=== PATIENT | male | born 1995 | race Caucasian/White ===

== ENCOUNTER 2016-11-21 06:44 | Inpatient (IN) | payer OTHER ==
[~2016-11-21] VITALS: Ht 182.9 cm; Wt 66.7 kg
[2016-11-21 06:57] VITALS: BP 129/80; PULSE 114; RESP 18; TEMP 98.7; O2SAT 100
[2016-11-21] MEDS ORDERED: NACL 0.9% 1,000 ML IV ONE ×2 (06:58→07:30)
[2016-11-21] MEDS ORDERED: PROMETHAZINE HCL 25 MG/ML AMP IVP ONE (07:00)
[2016-11-21] MEDS ORDERED: MORPHINE 4 MG/ML INJ. SYRINGE IVP ONE (07:00)
--- NOTE | 2016-11-21 07:07 | NUR ---
Placed in room 8. Placed on bus driver/monitor, blood pressure machine and pulse oximeter. To gown for exam. Side rails up. Report given to
[2016-11-21 07:10] LABS: BILIRUBIN,URINE 1+ (NEGATIVE); BLOOD, URINE 1+ (NEGATIVE); CLARITY/URINE HAZY (CLEAR); COLOR,URINE AMBER (YELLOW); GLUCOSE,URINE NEGATIVE (NEGATIVE); KETONES,URINE 3+ (NEGATIVE); LEUKOCYTE ESTERASE ,URINE NEGATIVE (NEGATIVE); NITRITE, URINE NEGATIVE (NEGATIVE); PROTEIN URINE 2+ (NEGATIVE); UROBILINOGEN,URINE 0.2 (0.2-1.0)
--- NOTE | 2016-11-21 07:10 | NUR ---
Dr. Yi at bedside for evaluation
[2016-11-21 07:19] LABS: BACTERIA,URINE FEW /HPF (None Seen); WBC,URINE 0-3 /HPF (0-3)
[2016-11-21 07:20] LABS: MUCUS,URINE 2+ /LPF (None Seen)
--- NOTE | 2016-11-21 07:20 | NUR ---
ED MD Drummond at bedside for medical examination.
--- NOTE | 2016-11-21 07:25 | NUR ---
PT arrived to the ED with chief complaint of ABD pain x 2 days. Reports N/V/D. Hx. of Chron's disease and ABD abscess. Reports pain of 6/10. Pain upon palpation. No abdominal distension present. Mother at bedside. Will continue to monitor.
[2016-11-21] MEDS ORDERED: methylPREDNISolone SOD SUCC/PF 62.5 MG/ML VIAL IVP ONE (07:30)
[2016-11-21 07:31] LABS: CALCIUM 9.5 mg/dL (8.4-11.0); CREATININE 1.03 mg/dL (0.55-1.30); POTASSIUM 4.1 mmol/L (3.5-5.1)
[2016-11-21 07:34] LABS: INR 1.2 (0.80-1.20); PROTHROMBIN TIME 12.5 SECS (9.5-12.5)
[2016-11-21 07:36] LABS: ALBUMIN 3.1 g/dL (3.4-4.8); TOTAL BILIRUBIN 0.8 mg/dL (0.0-1.0); TOTAL PROTEIN, SERUM 8.7 g/dL (6.4-8.3)
--- NOTE | 2016-11-21 07:40 | NUR ---
Medications administered. PT tolerated well. Will continue to monitor.
[2016-11-21 07:41] LABS: HEMATOCRIT 45.8 % (36-54); MEAN CORPUSCULAR HEMOGLOBIN 27 pg (27-31); MEAN CORPUSCULAR VOLUME 81 fL (79.0-98.0); RED BLOOD CELL COUNT(AUTO) 5.65 MIL/uL (4.2-6.2); WHITE BLOOD COUNT (AUTO) 20.3 K/uL (4.5-11.0)
[2016-11-21 07:42] LABS: MEAN CORPUSCULAR HGB CONC 33 % (32-36); PLATELET COUNT (AUTO) 434 K/uL (130-430); RED CELL DISTRIBUTION WIDTH 12.1 % (9.0-15.0)
[2016-11-21] MEDS ORDERED: VITD2000 PO (07:59)
[2016-11-21] MEDS ORDERED: [UNRECOGNIZED DRUG - REMARK] PO (07:59)
[2016-11-21] MEDS ORDERED: LACT1CAP14 PO (07:59)
[2016-11-21] MEDS ORDERED: B CO1TAB6 PO (07:59)
[2016-11-21] MEDS ORDERED: CIMZIA SQ (07:59)
--- NOTE | 2016-11-21 07:59 | NUR ---
Medication reconciliation completed with information provided by mother. Any prior medication reconciliation on file was reviewed and corrected.
--- NOTE | 2016-11-21 08:05 | NUR ---
Off unit for CT via [facility]
[2016-11-21] MEDS ORDERED: IOHEXOL 100 ML IV ONE (08:07)
[2016-11-21 08:08] LABS: BAND % (MANUAL) 4 % (0-6); BASOPHILS % (MANUAL) 0 % (0-2); EOSINOPHILS % (MANUAL) 0 % (0-7); LYMPHOCYTES % (MANUAL) 12 % (20-46); MONOCYTES % (MANUAL) 6 % (0-11)
--- NOTE | 2016-11-21 08:30 | NUR ---
PT returned to unit from CT
[2016-11-21] MEDS ORDERED: PIPERACILLIN/TAZO 3.375 GM in NS 50 ML IV ONE (08:45)
[2016-11-21] MEDS ORDERED: PIPERACILLIN/TAZOBACTAM 3.375 GM/VIAL (ZOSYN) IV ONE (09:06)
--- NOTE | 2016-11-21 09:08 | NUR ---
Patient will be admitted to care of Dr. Franco. Admitted to med/surg unit. Will go to room 119-B. Summary report printed. Report will be given at bedside. Transfer to [facility]. IV present no sign or symptom of infiltration.
--- NOTE | 2016-11-21 09:13 | NUR ---
ADMISSION NOTE Received patient from ER via gurney, received report from ER. Patient admitted with diagnosis of CHRON'S FLARE UP. Patient oriented to hospital routine, call light, toileting and safety-patient verbalized understanding.
[2016-11-21 09:16] VITALS: BP 107/51; PULSE 111; RESP 18; TEMP 98.7; O2SAT 98
--- NOTE | 2016-11-21 09:40 | NUR ---
NOTE: RECEIVED REPORT FROM ADR NURSE. PATIENT IS RESTING COMFORTABLY IN BED. NO S/S OF DISTRESS OR SOB. PATIENT IS ALERT AND ORIENTED, ABLE TO EXPRESS NEEDS, AND ASK FOR ASSISTANCE. MOTHER AT BEDSIDE. VITAL SIGNS WNL, ASSESSMENT COMPLETE. PATIENT EDUCATED ON USING CALL LIGHT FOR ASSISTANCE WHEN WANTING TO GET UP DUE TO PAIN MEDICATION GIVEN IN ER. PATIENT AND MOTHER VERBALIZED UNDERSTANDING. CALL LIGHT IN REACH, BED IN LOWEST POSITION, AND WILL CONTINUE TO MONITOR.
--- NOTE | 2016-11-21 12:00 | NUR ---
NOTE: PATIENT IS RESTING COMFORTABLY IN BED. NO S/S OF DISTRESS OR SOB. PATIENT IS ALERT AND ORIENTED, ABLE TO EXPRESS NEEDS, AND ASK FOR ASSISTANCE. FAMILY AT BEDSIDE. CALL LIGHT IN REACH, BED IN LOWEST POSITION, AND WILL CONTINUE TO MONITOR.
[2016-11-21 12:45] VITALS: BP 97/56; PULSE 88; RESP 16; TEMP 97.4; O2SAT 97
[2016-11-21] MEDS ORDERED: ONDANSETRON HCL 4 MG/2 ML VIAL IVP PRN (13:45)
[2016-11-21] MEDS ORDERED: MORPHINE 2 MG/ML INJ. SYRINGE IVP PRN (13:45)
[2016-11-21] MEDS ORDERED: MORPHINE 4 MG/ML INJ. SYRINGE IVP PRN (14:00)
[2016-11-21] MEDS ORDERED: ACETAMINOPHEN 325 MG TABLET PO PRN (14:00)
--- NOTE | 2016-11-21 14:00 | NUR ---
NOTE: PATIENT IS RESTING COMFORTABLY IN BED. NO S/S OF DISTRESS OR SOB. PATIENT IS ALERT AND ORIENTED, ABLE TO EXPRESS NEEDS, AND ASK FOR ASSISTANCE. MOM AT BEDSIDE. PATIENT STILL HAS NOT URINATED OR HAD A BOWEL MOVEMENT. HE IS AWARE WE ARE WAITING FOR URINE SAMPLE AND STOOL. CALL LIGHT IN REACH, BED IN LOWEST POSITION, AND WILL CONTINUE TO MONITOR.
--- NOTE | 2016-11-21 14:22 | NUR ---
CONSULT GI [facility] DR ENCARNACION [phone] S/W [place] @ [phone]
[2016-11-21] MEDS: PIPERACILLIN/TAZO 4.5GM/DEX-IS 100 ML IV SCH ×2 (14:24→22:13)
[2016-11-21 15:49] LABS: BLOOD, URINE NEGATIVE (NEGATIVE); CLARITY/URINE CLEAR (CLEAR); COLOR,URINE YELLOW (YELLOW); GLUCOSE,URINE TRACE (NEGATIVE); KETONES,URINE 3+ (NEGATIVE); LEUKOCYTE ESTERASE ,URINE NEGATIVE (NEGATIVE); NITRITE, URINE NEGATIVE (NEGATIVE); PH,URINE 5.5 (5.0-8.0); PROTEIN URINE 1+ (NEGATIVE); UROBILINOGEN,URINE 0.2 (0.2-1.0)
--- NOTE | 2016-11-21 16:02 | NUR ---
NOTE: PATIENT IS RESTING COMFORTABLY IN BED. NO S/S OF DISTRESS OR SOB. PATIENT IS ALERT AND ORIENTED, ABLE TO EXPRESS NEEDS, AND ASK FOR ASSISTANCE. MOTHER AT BEDSIDE. CALL LIGHT IN REACH, BED IN LOWEST POSITION, AND WILL CONTINUE TO MONITOR.
[2016-11-21 16:22] LABS: BILIRUBIN,URINE 1+ (NEGATIVE)
[2016-11-21 16:23] LABS: BACTERIA,URINE FEW /HPF (None Seen); MUCUS,URINE None Seen /LPF (None Seen); RBC,URINE NONE SEEN /HPF (0-3); WBC,URINE 0-3 /HPF (0-3)
[2016-11-21 16:48] VITALS: BP 91/55; PULSE 90; RESP 16; TEMP 97.7; O2SAT 98
--- NOTE | 2016-11-21 18:30 | NUR ---
CLOSING NOTE: PATIENT IS RESTING COMFORTABLY IN BED. NO S/S OF DISTRESS OR SOB. PATIENT IS ALERT AND ORIENTED, ABLE TO EXPRESS NEEDS, AND ASK FOR ASSISTANCE. FAMILY IS AT BEDSIDE. CALL LIGHT IN REACH, BED IN LOWEST POSITION, AND WILL GIVE REPORT TO NIGHT NURSE.
[2016-11-21] MEDS: D5LR 1,000 ML IV SCH (18:59)
[2016-11-21 19:15] VITALS: BP 114/71; PULSE 75; RESP 17; TEMP 98.2; O2SAT 100
--- NOTE | 2016-11-21 19:15 | NUR ---
INITIAL ROUNDS RECVD PT IN BED WITH FAMILY @ BEDSIDE. A/A/O X4, NO S/S OF ANY PAIN. IV NOTED TO R A/C G 20, NO INFILTRATE WITH GOOD BLOOD RETURN. ALL EXTREMITIES ARE ACTIVE, AMBULATORY WITH SUPERVISION. DISCUSSED PLAN OF CARE WITH PT AND VERBALIZED UNDERSTANDING. BED IN LOW POSITION WITH CALL LIGHT WITHIN REACH. WILL CONT TO MONITOR
[2016-11-21] MEDS: LACTOBACILLUS RHAMNOSUS GG 1 CAP CAPSULE PO SCH (20:13)
--- NOTE | 2016-11-21 21:15 | NUR ---
ROUNDS PT IS AWAKE @ THIS TIME WITH PARENTS @ BEDSIDE. NO S/S OF ANY PAIN. BED IN LOW POSITION WITH CALL LIGHT WITHIN REACH. WILL CONT TO MONITOR.
--- NOTE | 2016-11-21 23:15 | NUR ---
AMBULATE PT IS AMBULATING IN THE HALLWAY THIS TIME WITH MOTHER . NO S/S OF ANY PAIN OR DISTRESS NOTED. BED IN LOW POSITION WITH CALL LIGHT WITHIN REACH. WILL CONT TO MONITOR.
[2016-11-22 00:12] VITALS: BP 102/56; PULSE 82; RESP 18; TEMP 98.5; O2SAT 96
--- NOTE | 2016-11-22 01:15 | NUR ---
ROUNDS PT IS COMFORTABLY RESTING WITH MOTHER @ BEDSIDE @ THIS TIME. NO S/S OP PAIN OR ANY DISTRESS NOTED. CALL LIGHT WITHIN REACH, WILL CONT TO MONITOR.
--- NOTE | 2016-11-22 03:15 | NUR ---
ROUNDS PT IS COMFORTABLY SLEEPING @ THIS TIME. NO C/O PAIN OR ANY DISTRESS NOTED. BED IN LOW POSITION WITH CALL LIGHT WITHIN REACH. WILL CONT TO MONITOR.
[2016-11-22 03:59] VITALS: BP 116/69; PULSE 78; RESP 18; TEMP 96.6; O2SAT 92
[2016-11-22] MEDS: D5LR 1,000 ML IV SCH ×2 (04:11→14:02)
--- NOTE | 2016-11-22 04:15 | NUR ---
ROUNDS PT IS RESTING WITH MOTHER @ BEDSIDE. NO S/S OF ANY DISTRESS NOTED. BED IN LOW POSITION WITH CALL LIGHT WITHIN REACH. WILL CONT TO MONITOR.
[2016-11-22] MEDS: PIPERACILLIN/TAZO 4.5GM/DEX-IS 100 ML IV SCH (05:21)
[2016-11-22 06:23] LABS: BASOPHILS % (AUTO) 0.1 % (0.0-2.0); EOSINOPHILS % (AUTO) 0.1 % (0.0-4.0); HEMATOCRIT 36.9 % (36-54); HEMOGLOBIN 12.1 g/dL (14.0-18.0); LYMPHOCYTES # (AUTO) 2.1 K/uL (1.0-5.5); LYMPHOCYTES % (AUTO) 11.9 % (20.5-51.5); MEAN CORPUSCULAR HEMOGLOBIN 27 pg (27-31); MEAN CORPUSCULAR HGB CONC 33 % (32-36); MEAN CORPUSCULAR VOLUME 81 fL (79.0-98.0); MONOCYTES % (AUTO) 5.9 % (1.7-9.3); NEUTROPHILS # (AUTO) 14.5 K/uL (1.8-7.7); PLATELET COUNT (AUTO) 366 K/uL (130-430); RED BLOOD CELL COUNT(AUTO) 4.55 MIL/uL (4.2-6.2); RED CELL DISTRIBUTION WIDTH 11.8 % (9.0-15.0); WHITE BLOOD COUNT (AUTO) 17.6 K/uL (4.5-11.0)
[2016-11-22 06:39] LABS: ALBUMIN 2.8 g/dL (3.4-4.8); CALCIUM 9.1 mg/dL (8.4-11.0); CREATININE 0.8 mg/dL (0.55-1.30); POTASSIUM 3.8 mmol/L (3.5-5.1); TOTAL BILIRUBIN 0.3 mg/dL (0.0-1.0); TOTAL PROTEIN, SERUM 7.5 g/dL (6.4-8.3)
--- NOTE | 2016-11-22 06:54 | NUR ---
FINAL ROUNDS PT IS RESTING @ THIS TIME. NO S/S OF PAIN OR ANY DISTRESS. V/S ARE WNL. ALL NEEDS MET AND ANTICIPATED BY NOC NURSES. BED IN LOW POSITION WITH SIDE RAILS UP X 2 FOR SAFETY. CALL LIGHT WITHIN REACH; ENDORSED.
--- NOTE | 2016-11-22 07:30 | NUR ---
rn notes: patient is aaox 4. afebrile. vss stable. no pain nor distress noted. mom at the bedside. has iv access on the rt ac #[id number] at 100cc/hr infusing on well. lungs bilaterally clear. abdomen soft and non distended. bed in low position. call lights within reach. safety measures maintained. informed patient to call for assistance.
[2016-11-22 08:01] LABS: ERYTHROCYTE SEDIMENTATION RATE 50 MM/HR (0-15)
--- NOTE | 2016-11-22 08:07 | NUR ---
patient is stable. no pain nor distress noted.
[2016-11-22 08:23] VITALS: BP 116/67; PULSE 63; RESP 14; TEMP 97.5; O2SAT 98
[2016-11-22] MEDS: LACTOBACILLUS RHAMNOSUS GG 1 CAP CAPSULE PO SCH ×3 (08:36→17:10)
--- NOTE | 2016-11-22 09:00 | NUR ---
due medication given as ordered.
--- NOTE | 2016-11-22 10:20 | NUR ---
dr trujillo came informed of the c dificile positive results.
[2016-11-22] MEDS ORDERED: LACTOBACILLUS RHAMNOSUS GG 1 CAP CAPSULE PO ONE (10:45)
[2016-11-22] MEDS ORDERED: metroNIDAZOLE 500 MG TABLET PO SCH ×2 (10:45→14:00)
--- NOTE | 2016-11-22 11:04 | NUR ---
HOME PRESCRIPTIONS FROM DR RONDON GIVEN TO THE PATIENT, COPY OF PRESCRIPTION PLACED IN THE PATIENT'S CHART, INFORMED PATIENT'S MOTHER THAT DR RONDON WOULD LIKE PATIENT TO STAY FOR LUNCH AND DINNER AND IF AFTER DINNER THE PATIENT IS FEELING WELL, THE PATIENT CAN DISCHARGE HOME, PATIENT AND HIS MOTHER VERBALIZED UNDERSTANDING.
[2016-11-22 11:55] VITALS: BP 119/68; PULSE 70; RESP 17; TEMP 97.9; O2SAT 99
[2016-11-22] MEDS: VANCOMYCIN HCL 125 MG CAPSULE PO SCH ×2 (12:25→17:10)
--- NOTE | 2016-11-22 12:34 | NUR ---
due medication given at this time. vanco po, flagyl po and culturelle po given at this time. with water. no pain nor distress noted. has greenish brown stool soft and loose stool as verbalized by the mom.
--- NOTE | 2016-11-22 12:57 | NUR ---
ID Consult: I spoke with Dr. Samano earlier. He is already aware of consult.
[2016-11-22] MEDS: metroNIDAZOLE 500 mg/NS 100 ML IV SCH ×2 (14:00→14:01)
--- NOTE | 2016-11-22 14:00 | NUR ---
seen by case packer jeremías.
--- NOTE | 2016-11-22 16:14 | NUR ---
patient stable. able to ambulate inside the room.no pain nor distress noted.
[2016-11-22 16:27] VITALS: BP 105/60; PULSE 93; RESP 18; TEMP 98; O2SAT 99
--- NOTE | 2016-11-22 17:11 | NUR ---
vanco po and culterelle po given. no pain. one diarrhea brown color. loose.
--- NOTE | 2016-11-22 17:15 | NUR ---
as per request of the mom. alexandra francis called [facility] regarding the medication. prescribed by Dr Franco. for d/c home
[2016-11-22 17:20] VITALS: BP 105/60; PULSE 93; RESP 18; TEMP 98; O2SAT 99
--- NOTE | 2016-11-22 17:54 | NUR ---
patient is eating slowly. but likes the food.
--- NOTE | 2016-11-22 18:21 | NUR ---
transition care discharge instruction signed by the mom. explained one by one the medication prescribed.dosage and frequency, side effects. return follow up with GI md and pcp in one week.
--- NOTE | 2016-11-22 19:01 | NUR ---
patient left in stable condition. mom is accompanying the patient. scds id band removed. saline lock removed. applied band aid.
== END 2016-11-22 19:00 | disposition home or self-care (01) | DRG 372 ==
LOC: SED 06:44 → SMU 08:46
PROVIDERS: ADMIT Internal Medicine; ATTEND Internal Medicine
DX: A04.7 Enterocolitis due to Clostridium difficile (principal); K50.90 Crohn's disease, unspecified, without complications; E44.1 Mild protein-calorie malnutrition; F19.10 Other psychoactive substance abuse, uncomplicated; E86.0 Dehydration
CPT/HCPCS: 36415; 80053; 81000-TC; 82150-TC; 82306; 83605; 83690-TC; 83735-TC; 85007; 85025; 85027; 85610-TC; 85651-TC; 85730-TC; 87040-TC; 87045-TC; 87046; 87230-TC; 89055; 96361; 96365; 96375; 99285; J2270; J2543; J2550; J2930; J3490; J7030; J7050; J7120; Q9967